=== PATIENT | male | born 1995 | race Hispanic/Latino ===

== ENCOUNTER → 2023-03-02 09:26 | Outpatient (CLI) | payer OTHER, SELFPAY ==
--- NOTE | 2023-03-02 09:31 | DI.RAD.S_ITS ---
PROCEDURE: XR KNEE LT 3V INDICATIONS: Left knee pain TECHNIQUE: 3 views of the knee were acquired. COMPARISON: None. FINDINGS: Bones: No fractures or dislocations. No patellar subluxation. No suspicious bony lesions. Soft tissues: No joint effusion. No suspicious soft tissue calcifications. IMPRESSION: No acute left knee fracture or dislocation. No significant joint effusion. Dictated by: Zac Mohan M.D. on 03/02/2023 at 9:46 Approved by: Zac Mohan M.D. on 03/02/2023 at 9:49
== END ==
PROVIDERS: Referring Provider Nurse Practitioner Family; Visit Provider Nurse Practitioner Family
DX: M25.562 Pain in left knee (principal)
CPT/HCPCS: 73562